=== PATIENT | female | born 1975 | race Caucasian/White ===

== ENCOUNTER → 2017-04-04 | Outpatient (CLI) | payer OTHER ==
--- NOTE | 2017-04-04 15:14 | REP ---
Clinical: Cough . Comparison: 12/09/2014 . Technique: PA and lateral. Findings: The mediastinum and cardiac silhouette are normal. The lung peters are clear and without acute consolidation, effusion, or pneumothorax. The skeletal structures are intact and normal. Impression: 1. No acute cardiopulmonary process. Signed by Edgar Bagley MD 04/04/2017 03:05 P
== END ==
LOC: M WUC 14:40
PROVIDERS: ATTEND Physician Assistant
DX: R05 Cough (principal)

== ENCOUNTER 2017-09-27 10:03 | Day surgery (SDC) | payer OTHER ==
[2017-09-27] MEDS ORDERED: LIDOCAINE 1% SDV 5 ML VIAL SQ (10:15)
[2017-09-27] MEDS ORDERED: LR 1,000 ML IV (10:15)
[2017-09-27] MEDS ORDERED: BACITRACIN OINT 30GM As Ordered (12:07)
[2017-09-27] MEDS ORDERED: LIDOCAINE W/EPINEPHRINE 1% 20ML VIAL As Ordered (12:07)
== END 2017-09-27 15:16 | disposition home or self-care (01) ==
LOC: M SDC 10:03
DX: R22.1 Localized swelling, mass and lump, neck (principal); Z53.29 Procedure and treatment not carried out because of patient's decision for other reasons

== ENCOUNTER 2019-02-22 04:45 | Emergency (ER) | payer OTHER ==
[~2019-02-22] VITALS: Ht 170.2 cm; Wt 59.1 kg
[2019-02-22 05:25] LABS: BASO # 0.1 10^3/uL (0.0-0.2); BASO % 0.7 % (0.0-1.0); EOS # 0.4 10^3/uL (0.0-0.5); EOS % 3.6 % (0.0-3.0); HEMATOCRIT 48.6 % (36.0-47.0); HEMOGLOBIN 16.4 g/dl (12.0-15.5); LYMPH % 24.5 % (24.0-44.0); MEAN CORPUSCULAR HEMOGLOBIN 32.7 pg (27.0-33.0); MEAN CORPUSCULAR HGB CONC 33.7 g/dl (32.0-36.5); MONO # 0.8 10^3/uL (0.0-0.8); MONO % 6.7 % (0.0-5.0); NEUTROPHILS # 7.7 10^3/uL (1.5-8.5); NEUTROPHILS % 63.3 % (36.0-66.0); PLATELET COUNT, AUTOMATED 323 10^3/uL (150-450); RED BLOOD COUNT 5.01 10^6/uL (4.00-5.40); WHITE BLOOD COUNT 12.2 10^3/uL (4.0-10.0)
[2019-02-22] MEDS ORDERED: LORazepam 2 MG/ML VIAL (J2060) IV STA (05:38)
[2019-02-22 06:01] LABS: BLOOD UREA NITROGEN 7 MG/DL (7-18); CALCIUM LEVEL 8.6 MG/DL (8.5-10.1); CARBON DIOXIDE LEVEL 26 MEQ/L (21-32); CHLORIDE LEVEL 107 MEQ/L (98-107); CK-MB VALUE MASS 8.2 NG/ML (<3.6); CPK CREATINE PHOSPHOKINASE 98 U/L (26-192); CREATININE FOR GFR 0.95 MG/DL (0.55-1.30); GLOMERULAR FILTRATION RATE > 60.0 (>58); GLUCOSE, FASTING 133 MG/DL (70-100); MB/CK RELATIVE INDEX 8.37 (< OR =4); POTASSIUM SERUM 4.4 MEQ/L (3.5-5.1); SODIUM LEVEL 139 MEQ/L (136-145); TROPONIN I 1.09 NG/ML (< 0.10)
[2019-02-22] MEDS ORDERED: ASPIRIN 81 MG CHEW TABLET PO ONE (06:15)
[2019-02-22] MEDS ORDERED: HEPARIN DRIP 25,000 UNITS in IV 1 EA IV SCH (06:22)
[2019-02-22] MEDS ORDERED: HEPARIN SOD (PORCINE) 5000 UNITS/ML VIAL IV ONE (06:30)
[2019-02-22] MEDS ORDERED: ASPIRIN 81 MG CHEW TABLET As Ordered ONE (06:31)
[2019-02-22] MEDS ORDERED: NITROGLYCERIN 0.4 MG SUBL TABLET As Ordered ONE (06:31)
[2019-02-22] MEDS: NITROGLYCERIN 0.4 MG SUBL TABLET SL PRN ×2 (06:39→06:47)
[2019-02-22 06:43] LABS: INR 0.97; PROTHROMBIN TIME 12.5 SECONDS (11.8-14.0)
[2019-02-22 06:44] LABS: PARTIAL THROMBOPLASTIN TIME 24.6 SECONDS (25.0-38.4)
[2019-02-22 06:47] VITALS: BP 139/97
[2019-02-22 06:54] VITALS: BP 130/77
--- NOTE | 2019-02-22 07:56 | ECGEPIP ---
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
--- NOTE | 2019-02-22 08:23 | REP ---
Portable chest x-ray: Single view. History: Chest pain. Comparison study: April 04, 2017. Findings: Monitoring electrodes are seen. Lungs are well inflated and clear. Heart size is normal. Pulmonary vasculature is not increased. Impression: Negative portable chest x-ray. Electronically Signed by Patrick Gann MD 02/22/2019 08:15 A
== END 2019-02-22 07:10 | disposition short-term general hospital (02) ==
LOC: M ED 04:45
DX: I20.0 Unstable angina (principal); F41.9 Anxiety disorder, unspecified; F32.9 Major depressive disorder, single episode, unspecified; F17.218 Nicotine dependence, cigarettes, with other nicotine-induced disorders; Z88.0 Allergy status to penicillin
CPT/HCPCS: 71045; 80048; 82550; 82553; 85025; 85610; 85730; 93005; 93041; 94760; 96374; 96375; 99285; J2060

== ENCOUNTER 2019-05-14 13:20 | Emergency (ER) | payer OTHER ==
[~2019-05-14] VITALS: Ht 162.6 cm; Wt 62.3 kg
[2019-05-14 14:05] LABS: BASO # 0.1 10^3/uL (0.0-0.2); EOS # 0.1 10^3/uL (0.0-0.5); EOS % 1.9 % (0.0-3.0); HEMATOCRIT 45.4 % (36.0-47.0); HEMOGLOBIN 14.8 g/dl (12.0-15.5); LYMPH # 1.4 10^3/uL (1.5-5.0); LYMPH % 24.7 % (24.0-44.0); MEAN CORPUSCULAR HEMOGLOBIN 32.3 pg (27.0-33.0); MEAN CORPUSCULAR HGB CONC 32.6 g/dl (32.0-36.5); MEAN CORPUSCULAR VOLUME 99.1 fl (80.0-96.0); MONO # 0.9 10^3/uL (0.0-0.8); MONO % 14.9 % (0.0-5.0); NEUTROPHILS # 3.3 10^3/uL (1.5-8.5); NEUTROPHILS % 57.2 % (36.0-66.0); PLATELET COUNT, AUTOMATED 254 10^3/uL (150-450); RED BLOOD COUNT 4.58 10^6/uL (4.00-5.40); WHITE BLOOD COUNT 5.7 10^3/uL (4.0-10.0)
--- NOTE | 2019-05-14 14:06 | REP ---
Portable chest x-ray: Single view. History: Chest pain. Comparison study: February 22, 2019. Findings: Monitoring electrodes overlie the chest. The lungs are symmetrically aerated and clear. Heart is not enlarged. Pulmonary vasculature is not increased. No significant bony abnormality is seen. Impression: No active disease. Electronically Signed by Patrick Gann MD 05/14/2019 01:58 P
[2019-05-14 14:30] LABS: BLOOD UREA NITROGEN 8 MG/DL (7-18); CALCIUM LEVEL 8.7 MG/DL (8.5-10.1); CARBON DIOXIDE LEVEL 27 MEQ/L (21-32); CHLORIDE LEVEL 106 MEQ/L (98-107); CK-MB VALUE MASS < 1.0 NG/ML (<3.6); CPK CREATINE PHOSPHOKINASE 53 U/L (26-192); CREATININE FOR GFR 0.82 MG/DL (0.55-1.30); GLOMERULAR FILTRATION RATE > 60.0 (>58); GLUCOSE, FASTING 94 MG/DL (70-100); MB/CK RELATIVE INDEX 1.89 (< OR =4); POTASSIUM SERUM 3.7 MEQ/L (3.5-5.1); SODIUM LEVEL 139 MEQ/L (136-145); TROPONIN I < 0.02 NG/ML (< 0.10)
[2019-05-14 17:00] VITALS: BP 114/74
[2019-05-14 17:08] LABS: CK-MB VALUE MASS < 1.0 NG/ML (<3.6); CPK CREATINE PHOSPHOKINASE 51 U/L (26-192); MB/CK RELATIVE INDEX 1.96 (< OR =4); TROPONIN I < 0.02 NG/ML (< 0.10)
--- NOTE | 2019-05-14 18:20 | ECGEPIP ---
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
--- NOTE | 2019-05-14 18:24 | ECGEPIP ---
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
== END 2019-05-14 17:42 | disposition home or self-care (01) ==
LOC: M ED 13:20
DX: R07.9 Chest pain, unspecified (principal); R94.31 Abnormal electrocardiogram [ECG] [EKG]; J44.9 Chronic obstructive pulmonary disease, unspecified; E78.5 Hyperlipidemia, unspecified; F17.210 Nicotine dependence, cigarettes, uncomplicated; Z88.0 Allergy status to penicillin